=== PATIENT | female | born 1990 | race Two or more races ===

== ENCOUNTER 2017-01-31 21:38 | Inpatient (IN) | payer BC, OTHER ==
[~2017-01-31] VITALS: Ht 167.6 cm; Wt 56.7 kg
[2017-01-31] MEDS ORDERED: IV NS 0.9% 2,000 ML ONE (21:47)
[2017-01-31] MEDS ORDERED: IV SET PRIMARY 1 EA INFUS.SET MC ONE (21:47)
--- NOTE | 2017-01-31 21:50 | NUR ---
To bed peds a 26 yo female bibra with c/o of diarrhea, n/v for 1 day. Patient is aaox3, reported that she had a detox drink that made her "sick." Per patient she had non stop n/v with watery stools. Patient with dry mucous membranes and tachycardic on tele. Cardiac monitoring in place. Awaiting for er md vicente.
[2017-01-31] MEDS ORDERED: ONDANSETRON HCL/PF 4 MG/2 ML VIAL ONE (21:55)
[2017-01-31 21:59] LABS: BASOPHILS # (AUTO) 0.1 /CMM (0.0-0.2); BASOPHILS % (AUTO) 0.8 % (0.0-2.0); HEMATOCRIT 44 % (33-45); HEMOGLOBIN 14.3 g/dL (11.5-14.8); LYMPHOCYTES # (AUTO) 0.2 /CMM (0.8-4.8); LYMPHOCYTES % (AUTO) 3.3 % (20.0-44.0); MEAN CORPUSCULAR HEMOGLOBIN 27 PG (26.0-33.0); MEAN CORPUSCULAR HGB CONC 32 g/dl (31.0-36.0); MEAN CORPUSCULAR VOLUME 84 fL (82-100); MONOCYTES % (AUTO) 0.6 % (2.0-12.0); NEUTROPHILS # (AUTO) 7.2 /CMM (1.8-8.9); NEUTROPHILS % (AUTO) 95.3 % (43.0-81.0); PLATELET COUNT (AUTO) 188 /CMM (150-450); RDW COEFFICIENT OF VARIATION 12.3 (11.5-15.0); RED BLOOD CELL COUNT(AUTO) 5.26 MIL/uL (4.0-5.2); WHITE BLOOD COUNT (AUTO) 7.5 K/uL (4.3-11.0)
[2017-01-31] MEDS ORDERED: ONDANSETRON HCL/PF 4 MG/2 ML VIAL IVP ONE (22:00)
[2017-01-31] MEDS ORDERED: IV NS 0.9% 1,000 ML BAG IV ONE ×2 (22:00→22:30)
--- NOTE | 2017-01-31 22:00 | NUR ---
started a saline lock on lac g22, blood drawn and sent to lab.
--- NOTE | 2017-01-31 22:04 | NUR ---
medicated patient as ordered.
[2017-01-31] MEDS ORDERED: MORPHINE SULFATE INJ 4 MG/ML DISP.SYRIN ONE (22:24)
[2017-01-31 22:27] LABS: CALCIUM, SERUM 9.5 mg/dL (8.5-10.1); CREATININE 0.9 mg/dL (0.6-1.3); POTASSIUM 3.7 mmol/L (3.5-5.1)
[2017-01-31] MEDS ORDERED: MORPHINE SULFATE INJ 2 MG/ML DISP.SYRIN IV ONE (22:30)
[2017-01-31] MEDS ORDERED: MORPHINE SULFATE INJ 2 MG/ML DISP.SYRIN ONE (22:32)
[2017-01-31 22:34] LABS: ALBUMIN 4.6 g/dL (3.4-5.0); BILIRUBIN,DIRECT 0.1 mg/dL (0.0-0.2); BILIRUBIN,TOTAL 0.4 mg/dL (0.2-1.0); TOTAL PROTEIN, SERUM 9.4 g/dL (6.4-8.2)
--- NOTE | 2017-01-31 22:39 | NUR ---
Morphine 2mg IVP given per [employer] Marsii verbal orders.
[2017-01-31 23:58] LABS: MAGNESIUM 1.8 mg/dL (1.8-2.4)
[2017-02-01] MEDS ORDERED: IV NS 0.9% 1,000 ML BAG IV ONE
[2017-02-01] MEDS ORDERED: IV SET PRIMARY 1 EA INFUS.SET MC ONE ×2 (00:06→02:12)
[2017-02-01] MEDS ORDERED: IV NS 0.9% 1,000 ML ONE ×3 (00:06→02:59)
--- NOTE | 2017-02-01 00:13 | NUR ---
Started the 4th NS 1L IV bolus to lac g22 per Dr Gonzalez's orders.
[2017-02-01] MEDS ORDERED: IOHEXOL-300 100 ML VIAL IV ONE (00:15)
[2017-02-01] MEDS ORDERED: IV NS 0.9% 250 ML IV ONE (00:15)
[2017-02-01] MEDS ORDERED: CT SWABBABLE VALVE TRANS SET 1 EA INFUS.SET MC ONE (00:15)
[2017-02-01] MEDS ORDERED: Magnesium 1GM/D5W 100ML PREMIX 200 ML IV ONE (00:17)
[2017-02-01] MEDS ORDERED: IV SET PRIMARY PUMP SET 1 EA INFUS.SET MC ONE ×3 (00:17→02:52)
--- NOTE | 2017-02-01 00:23 | NUR ---
Patient to ct.
--- NOTE | 2017-02-01 00:28 | NUR ---
Patient to ct.
[2017-02-01] MEDS: Magnesium 1GM/D5W 100ML PREMIX 100 ML IV SCH ×2 (00:50→02:06)
[2017-02-01] MEDS ORDERED: IV NS 0.9% 1,000 ML IV PRN ×2 (02:15→08:42)
[2017-02-01 02:18] LABS: APPEARANCE,URINE CLEAR (CLEAR); BILIRUBIN,URINE NEGATIVE (NEGATIVE); BLOOD, URINE TRACE-INTA Ery/uL (NEGATIVE); KETONES,URINE 1+ (NEGATIVE); LEUKOCYTE ESTERASE ,URINE TRACE (NEGATIVE); NITRITE, URINE NEGATIVE (NEGATIVE); PH,URINE 5.5 (5.0-8.0); PROTEIN,URINE NEGATIVE (NEGATIVE); UGLUCOSE NEGATIVE (NEGATIVE); UROBILINOGEN,URINE 0.2 EU/dL (0.2)
[2017-02-01] MEDS ORDERED: ONDANSETRON HCL/PF 4 MG/2 ML VIAL ONE (02:35)
[2017-02-01] MEDS ORDERED: ACETAMINOPHEN 325 MG TABLET ONE (02:35)
[2017-02-01] MEDS: ACETAMINOPHEN 325 MG TABLET PO PRN ×2 (02:45→22:44)
[2017-02-01] MEDS: ONDANSETRON HCL/PF 4 MG/2 ML VIAL IVP PRN (02:46)
[2017-02-01 02:50] LABS: COLOR,URINE STRAW (YELLOW)
[2017-02-01 02:52] LABS: PREGNANCY TEST URINE QUAL NEGATIVE (NEGATIVE)
[2017-02-01 02:54] LABS: ADD URINE CULTURE NO; BACTERIA,URINE None seen /HPF (None Seen); RBC,URINE NONE SEEN /HPF (0-2); SQUAMOUS EPITHELIAL CELL,UR Rare /HPF (None Seen); WBC,URINE NONE SEEN /HPF (0-3)
--- NOTE | 2017-02-01 02:55 | NUR ---
Transported to [facility] room 120, no incident noted.
[2017-02-01 03:00] VITALS: BP 93/61
--- NOTE | 2017-02-01 03:00 | NUR ---
RECEIVED PATIENT BY FAMILY KETTY BY THE BEDSIDE. PATIENT HELPED TO BED, ORIENTED TO HER ROOM SAFETY MEASURES IN USE. CALL LIGHT WITHIN REACH, CONTINUE TO MONITOR
--- NOTE | 2017-02-01 07:54 | NUR ---
INITIAL NOTE RESTING IN BED, LOC AND BREATHING WNL. DENIES PAIN, DENIES N/V. DIARRHEA STILL ACTIVE. LAC IV PATENT WITH NS INFUSING @ 125ML/HR. SKIN WARM AND DRY. AMBULATORY WITH STEADY GAIT. CALL LIGHT IN REACH.
[2017-02-01 08:00] VITALS: BP 83/52
[2017-02-01] MEDS ORDERED: MESA800T3 PO (08:38)
[2017-02-01] MEDS ORDERED: LOPERAMIDE HCL (2 MG CAP) 2 MG CAPSULE PO PRN (09:00)
[2017-02-01] MEDS ORDERED: MESA1.2T PO (09:05)
[2017-02-01 10:49] VITALS: BP_SYST 100; BP_SYST 102; BP_SYST 105; BP_DIAS 65; BP_DIAS 68; BP_DIAS 69
--- NOTE | 2017-02-01 11:58 | NUR ---
RN note Informed Dr. Gonzalez of microbiology stool result. gave telephone order for Vanco 250mg PO q6 hr. order read back and confirmed. informed patient and discussed plan of care. patient verbalized understanding.
[2017-02-01] MEDS: VANCOMYCIN HCL 125 MG/2.5 ML ORAL.SUSP PO SCH ×3 (12:49→23:17)
[2017-02-01] MEDS ORDERED: VANCOMYCIN HCL 125 MG/2.5 ML ORAL.SUSP PO SCH (13:00)
[2017-02-01] MEDS ORDERED: LACTOBACILLUS RHAMNOSUS GG 1 EACH CAP.SPRINK PO SCH (14:30)
[2017-02-01 16:00] VITALS: BP 111/74
--- NOTE | 2017-02-01 19:30 | NUR ---
MS RN INITIAL NOTES RECEIVED PATIENT AWAKE, A/OX4, ABLE TO MAKE NEEDS KNOWN. FAMILY AT BEDSIDE. PATIENT COMPLAINS OF IV SITE PAIN. PER DR. ELLEN GORDILLO TO REMOVE LINE, NO NEED FOR IVF SINCE PATIENT HAS GOOD PO INTAKE. NO RESPIRATORY DISTRESS NOTED. SKIN WARM AND DRY TO TOUCH. PATIENT DENIES ABDOMINAL PAIN. DENIES N/V. SIDE RAILS UP AND LOCKED. BED KEPT AT LOWEST POSITION. CALL LIGHT KEPT WITHIN EASY REACH. WILL CONTINUE TO MONITOR.
[2017-02-01 20:00] VITALS: BP 107/74
--- NOTE | 2017-02-01 22:47 | NUR ---
NOTED WITH AXILLARY TEMP 99.0, PATIENT REQUESTED FOR PRN TYLENOL. TYLENOL GIVEN ORDERED.
--- NOTE | 2017-02-01 23:00 | NUR ---
patient not feeling well, states she feels a little nauseous, but does not want to take zofran at this time to see if it will subside on its own. offered ice chips at this time. vs: 104/71, 99.0, 107, 20. encouraged ivf at this time. patient agreed. placed patient on ivf, prefers ivf at 125ml/hr at this time. will continue to monitor.
[2017-02-02 04:00] VITALS: BP 95/60
[2017-02-02] MEDS: VANCOMYCIN HCL 125 MG/2.5 ML ORAL.SUSP PO SCH ×2 (05:40→11:22)
[2017-02-02] MEDS: ACETAMINOPHEN 325 MG TABLET PO PRN (06:23)
--- NOTE | 2017-02-02 06:36 | NUR ---
MS RN CLOSING NOTES NO SIGNIFICANT CHANGES OVERNIGHT. ALL NEEDS ANTICIPATED AND MET. MOTHER AT BEDSIDE. DENIES SOB. REFUSED AM LABS. SKIN WARM AND DRY TO TOUCH. ISOLATION PRECAUTIONS OBSERVED. PER PATIENT SHE HAD TWO EPISODES OF BM, LESS WATERY, WITH SOME DEBRIS. PATIENT INDEPENDENT WITH SELF CARE. SIDE RAILS UP AND LOCKED. BED KEPT AT LOWEST POSITION. CALL LIGHT KEPT WITHIN EASY REACH. WILL ENDORSE CONTINUITY OF CARE TO AM NURSE.
[2017-02-02 08:00] VITALS: BP 94/62
--- NOTE | 2017-02-02 08:00 | NUR ---
MS RN NOTE PATIENT IN BED .ALERT ,ORIENTED , ON RA SAT 98%, NO SOB NOTED ,NO ABDOMINAL DISCOMFORT NOTED AT THIS TIME, BOWEL SOUND PRESENT , HL ON LT HAND INTACT, REFUSED TO CONT IVF DR HUGHES NOTIFIED , STARTED ON REGULAR DIET , DR HUGHES NOTIFIED , BED IN LOWERS AND LOCKED POSITION , CALL LIGHT WITHIN REACH , PLAN OF CARE DISUSED WITH PATIENT , WILL CONT TO MONITOR CLOSELY
--- NOTE | 2017-02-02 09:53 | NUR ---
MS RN NOTE DR HUGHES AT BEDSIDE WITH ORDER TO D\C HOME ,ORDER CARRIED OUT
[2017-02-02] MEDS: ONDANSETRON HCL/PF 4 MG/2 ML VIAL IVP PRN (09:58)
--- NOTE | 2017-02-02 10:41 | NUR ---
MS RN NOTE C\O NAUSEA ,ZOFRAN IVP GIVEN ORDERED ,ALL NEEDS ATTENDED, WILL CONT TO MONITOR CLOSELY
--- NOTE | 2017-02-02 12:30 | NUR ---
MS RN NOTE HAVING LUNCH, NOT IN ACUTE DISTRESS ,TOLERATED WELL REGULAR DIET ,NO NAUSEA NOTED , MOTHER AT BEDSIDE , ALL NEEDS ATTENDED
--- NOTE | 2017-02-02 13:43 | NUR ---
MS RN NOTE DISCHARGE INSTRUCTION, GIVEN UNDERSTOOD , HL REMOVED, RX GIVEN UNDERSTOOD ,EXPLAINED [facility]OUR NEW RX AND POSSIBLE SIDE EFFECTS , PX GIVEN , INSTRUCTED TO FOLLOW UP WITH PRIMARY CARE DOCTOR AND RETURN FOR WORSENING SYMPTOMS, BELONGING CHECKED , WENT HOME WITH STABLE CONDITION ACCOMPANIED WITH MOTHER
== END 2017-02-02 13:38 | disposition home or self-care (01) | DRG 372 ==
LOC: ER 21:45 → MEDSG1 02-01 02:35
PROVIDERS: ADMIT Internal Medicine; ATTEND Internal Medicine
DX: A04.7 Enterocolitis due to Clostridium difficile (principal); K51.90 Ulcerative colitis, unspecified, without complications; I95.9 Hypotension, unspecified; K52.9 Noninfective gastroenteritis and colitis, unspecified; E83.42 Hypomagnesemia; E86.9 Volume depletion, unspecified
CPT/HCPCS: 36415; 71010-TC; 80048-TC; 80076-TC; 81000-TC; 83605-TC; 83690-TC; 83735-TC; 84702-TC; 84703-TC; 85025-TC; 87045-TC; 87081-TC; 87177; 87209; 89055; A4606; J2270; J2405; J3475; J7030; J7050; Q9967; Z7610

== ENCOUNTER 2017-04-15 07:46 | Outpatient (CLI) | payer BC, OTHER ==
[~2017-04-15 07:46] MED LIST: MESA1.2T PO
[2017-04-15 08:39] LABS: BASOPHILS % (AUTO) 0.5 % (0.0-2.0); EOSINOPHILS % (AUTO) 0.3 % (0.0-6.0); HEMATOCRIT 35 % (33-45); HEMOGLOBIN 11.9 g/dL (11.5-14.8); LYMPHOCYTES # (AUTO) 1.7 /CMM (0.8-4.8); LYMPHOCYTES % (AUTO) 24.8 % (20.0-44.0); MEAN CORPUSCULAR HEMOGLOBIN 29 PG (26.0-33.0); MEAN CORPUSCULAR HGB CONC 34 g/dl (31.0-36.0); MEAN CORPUSCULAR VOLUME 85 fL (82-100); MONOCYTES # (AUTO) 0.4 /CMM (0.1-1.30); MONOCYTES % (AUTO) 6.1 % (2.0-12.0); NEUTROPHILS # (AUTO) 4.8 /CMM (1.8-8.9); NEUTROPHILS % (AUTO) 68.3 % (43.0-81.0); PLATELET COUNT (AUTO) 189 /CMM (150-450); RDW COEFFICIENT OF VARIATION 14.9 (11.5-15.0); RED BLOOD CELL COUNT(AUTO) 4.11 MIL/uL (4.0-5.2)
[2017-04-15 10:51] LABS: ALBUMIN 3.8 g/dL (3.4-5.0); BILIRUBIN,TOTAL 0.3 mg/dL (0.2-1.0); CALCIUM, SERUM 9.1 mg/dL (8.5-10.1); CREATININE 0.6 mg/dL (0.6-1.3); POTASSIUM 3.7 mmol/L (3.5-5.1); TOTAL PROTEIN, SERUM 7.8 g/dL (6.4-8.2)
== END 2017-04-15 23:59 | disposition home or self-care (01) ==
LOC: LAB 07:46
PROVIDERS: ATTEND Internal Medicine
DX: K51.90 Ulcerative colitis, unspecified, without complications (principal)
CPT/HCPCS: 36415; 80053-TC; 85025-TC

== ENCOUNTER 2021-09-05 11:38 | Outpatient (CLI) | payer BC ==
[2021-09-05 12:43] LABS: BASOPHILS % (AUTO) 0.5 % (0.0-2.0); EOSINOPHILS % (AUTO) 3.3 % (0.0-6.0); HEMATOCRIT 36 % (33-45); HEMOGLOBIN 11.8 g/dL (11.5-14.8); LYMPHOCYTES # (AUTO) 2.1 K/uL (0.8-4.8); LYMPHOCYTES % (AUTO) 26.8 % (20.0-44.0); MEAN CORPUSCULAR HGB CONC 33 g/dl (31.0-36.0); MEAN CORPUSCULAR VOLUME 86 fL (82-100); MONOCYTES # (AUTO) 0.4 K/uL (0.1-1.30); MONOCYTES % (AUTO) 4.9 % (2.0-12.0); NEUTROPHILS # (AUTO) 5.1 K/uL (1.8-8.9); NEUTROPHILS % (AUTO) 64.5 % (43.0-81.0); PLATELET COUNT (AUTO) 276 K/uL (150-450); RED BLOOD CELL COUNT(AUTO) 4.13 MIL/uL (4.0-5.2); WHITE BLOOD COUNT (AUTO) 7.8 K/uL (4.3-11.0)
[2021-09-05 13:21] LABS: ALBUMIN 3.7 g/dL (3.4-5.0); BILIRUBIN,TOTAL 0.2 mg/dL (0.2-1.0); CALCIUM, SERUM 8.8 mg/dL (8.5-10.1); CREATININE 0.7 mg/dL (0.6-1.3); POTASSIUM 3.3 mmol/L (3.5-5.1); TOTAL PROTEIN, SERUM 8.1 g/dL (6.4-8.2)
[2021-09-08 12:07] LABS: *ANCANTIMYELOPEROXIDASE (MPO) <9.0 U/mL (0.0-9.0); *ANCANTIPROTEINASE 3 (PR-3) AB <3.5 U/mL (0.0-3.5)
[2021-09-08 13:07] LABS: *ANCA ATYPICAL p-ANCA <1:20 titer (Neg:<1:20); *ANCA CYTOPLASMIC (C-ANCA) <1:20 titer (Neg:<1:20); *ANCA PERINUCLEAR (P-ANCA) <1:20 titer (Neg:<1:20)
== END 2021-09-05 23:59 | disposition home or self-care (01) ==
LOC: LAB 11:38
PROVIDERS: ATTEND Internal Medicine
DX: K51.90 Ulcerative colitis, unspecified, without complications (principal)
CPT/HCPCS: 36415; 80053-TC; 83520; 85025-TC; 86256

== ENCOUNTER 2021-09-20 14:18 | Outpatient (CLI) | payer BC | END 2021-09-20 23:59 | disposition home or self-care (01) | LOC: LAB 14:18 | PROVIDERS: ATTEND Nurse Practitioner Acute Care | DX: Z01.812 Encounter for preprocedural laboratory examination (principal); Z20.822 Contact with and (suspected) exposure to COVID-19 | CPT/HCPCS: 87426; C9803 ==